=== PATIENT | female | born 1960 | race Caucasian/White ===

== ENCOUNTER → 2019-09-07 | Outpatient (CLI) | payer OTHER ==
[~2019-09-07] MED LIST: AMBI5TAB; ATIV0.5T; CELE10TA; No Historical Meds
--- NOTE | 2019-09-07 08:48 | REPMRS ---
Patient History Patient is postmenopausal. Scar from childhood injury Digital Woman Screen Mammo: September 07, 2019 - Exam #: [id number] Bilateral CC and MLO view(s) were taken. Technologist: Ayala Gill, Technologist No prior studies available for comparison. FINDINGS: There are scattered fibroglandular densities. There is no evidence of dominant mass, architectural distortion, or grouped microcalcification typical of malignancy. 3-D tomosynthesis shows no additional findings. Assessment: BI-RADS/ACR category 1 mammogram. Negative Mammogram. Recommendation Routine screening mammogram of both breasts in 1 year (for women over age 40). This patient's Lifetime Breast Cancer RIsk is estimated at 5.1 %. This mammogram was interpreted with the aid of an FDA-approved computer-aided dectection system. Electronically Signed By: Reynold Orosco MD 09/07/19 0893
== END ==
LOC: M WHC 07:45
PROVIDERS: ATTEND Internal Medicine
DX: Z12.31 Encounter for screening mammogram for malignant neoplasm of breast (principal); Z78.0 Asymptomatic menopausal state

== ENCOUNTER → 2021-05-15 | Outpatient (CLI) | payer OTHER ==
--- NOTE | 2021-05-15 16:09 | REP ---
INDICATION: HX OF NICOTINE DEPENDENCE. COMPARISON: Comparison chest CT studies March 16, 2018 and December 16, 2017. TECHNIQUE: Dose reduction was performed utilizing CARE dose with automated adjustment of the kV and MAS according to patient size; iterative reconstruction, automated exposure control, as well as adaptive dose shielding. Helical scanning is acquired and 3 millimeter axial images are re-formatted at lung windows. FINDINGS: Preliminary digital straw hat brim raiser operator radiograph is unremarkable. There is bilateral upper lobe linear scarring right more so than left. These linear markings are unchanged from the 2018 prior study. The lungs overall are somewhat hyperinflated. Mild linear fibrosis is also noted in the lingula towards the base. This is unchanged as well. No new infiltrate or lung mass is observed. No significant pulmonary nodule is appreciated. No endobronchial abnormality is seen. IMPRESSION: Lung RADS category 1 findings. Repeat screening exam suggested in 1 year. <Electronically signed by Reynold Orosco > 05/15/21 1157
== END ==
LOC: M RAD 15:44
PROVIDERS: ATTEND Internal Medicine Pulmonary Disease
DX: Z12.2 Encounter for screening for malignant neoplasm of respiratory organs (principal); Z87.891 Personal history of nicotine dependence

== ENCOUNTER → 2021-10-26 | Outpatient (CLI) | payer OTHER ==
[~2021-10-26] MED LIST changes: +ANOR1AER INH; +CALTCHW4 PO; +CALTCHW5 PO; +MULT-40 PO; +VITMTA PO
== END ==
LOC: M LABSMTC 09:12
PROVIDERS: ATTEND Anesthesiology
DX: Z01.818 Encounter for other preprocedural examination (principal); Z11.52 Encounter for screening for COVID-19

== ENCOUNTER 2021-10-30 06:33 | Day surgery (SDC) | payer OTHER ==
[~2021-10-30] VITALS: Ht 162.6 cm; Wt 74.8 kg
[~2021-10-30 06:33] MED LIST changes: +NS 1,000 ML IV ONE
[2021-10-30] MEDS ORDERED: LIDOCAINE 2% 100MG/5ML SDV (FOR ANES.) As Ordered ONE (07:37)
[2021-10-30] MEDS ORDERED: propofoL 200 MG/20 ML VIAL As Ordered ONE (07:51)
[2021-10-30 08:34] VITALS: BP 138/67
== END 2021-10-30 08:34 | disposition home or self-care (01) ==
LOC: M OPP 06:33
PROVIDERS: ATTEND Internal Medicine Gastroenterology
DX: Z12.11 Encounter for screening for malignant neoplasm of colon (principal); D12.6 Benign neoplasm of colon, unspecified; R85.613 High grade squamous intraepithelial lesion on cytologic smear of anus (HGSIL); K64.8 Other hemorrhoids; Z79.899 Other long term (current) drug therapy; Z88.1 Allergy status to other antibiotic agents; Z88.8 Allergy status to other drugs, medicaments and biological substances; Z86.16 Personal history of COVID-19; Z87.891 Personal history of nicotine dependence; Z80.41 Family history of malignant neoplasm of ovary; Z80.3 Family history of malignant neoplasm of breast

== ENCOUNTER → 2022-02-07 | Outpatient (CLI) | payer OTHER ==
[~2022-02-07] MED LIST changes: -NS 1,000 ML IV ONE
== END ==
LOC: M LABSMTC 09:19
PROVIDERS: ATTEND Anesthesiology
DX: Z11.52 Encounter for screening for COVID-19 (principal); Z20.822 Contact with and (suspected) exposure to COVID-19

== ENCOUNTER 2022-02-11 06:48 | Day surgery (SDC) | payer OTHER ==
[~2022-02-11] VITALS: Ht 162.6 cm; Wt 76.2 kg
[~2022-02-11 06:48] MED LIST changes: +NS 1,000 ML IV ONE
[2022-02-11] MEDS ORDERED: propofoL 200 MG/20 ML VIAL As Ordered ONE ×3 (07:02→08:06)
[2022-02-11 09:15] VITALS: BP 186/65
== END 2022-02-11 08:50 | disposition home or self-care (01) ==
LOC: M OPP 06:48
PROVIDERS: ATTEND Internal Medicine Gastroenterology
DX: K62.89 Other specified diseases of anus and rectum (principal); K64.8 Other hemorrhoids; Z53.8 Procedure and treatment not carried out for other reasons; Z79.51 Long term (current) use of inhaled steroids; Z88.8 Allergy status to other drugs, medicaments and biological substances; Z80.3 Family history of malignant neoplasm of breast; Z84.1 Family history of disorders of kidney and ureter; Z87.891 Personal history of nicotine dependence

== ENCOUNTER → 2022-12-13 | Outpatient (CLI) | payer OTHER ==
[~2022-12-13] MED LIST changes: -NS 1,000 ML IV ONE
== END ==
LOC: M RAD 06:32
PROVIDERS: ATTEND Internal Medicine Pulmonary Disease
DX: Z12.2 Encounter for screening for malignant neoplasm of respiratory organs (principal); Z87.891 Personal history of nicotine dependence

== ENCOUNTER → 2024-10-22 | Outpatient (CLI) | payer OTHER | LOC: M RAD 12:21 | PROVIDERS: ATTEND Internal Medicine Pulmonary Disease | DX: Z87.891 Personal history of nicotine dependence (principal); J43.9 Emphysema, unspecified ==